=== PATIENT | female | born 1955 | race African-American/Black ===

== ENCOUNTER 2019-04-27 18:14 | Emergency (ER) | payer MEDICAID, OTHER ==
[~2019-04-27] VITALS: Ht 165.1 cm; Wt 65.8 kg
[2019-04-27 18:12] VITALS: BP 132/72
--- NOTE | 2019-04-27 18:13 | NUR ---
ED Nurse Note: pt was brought in by [facility] from [facility] c/c constipation, per EMS report pt was seen in the ED earlier and was discharged but patient couldn't afford medications and didn't sheepskin pickler her meds, pt is now having symptoms again. pt states she has 10/10 pain on abd area. pt afebrile, skin warm and dry, resp even and unlabored on RA, hypoactive BS, -n/v/d, will cont monitor.
[~2019-04-27 18:14] MED LIST: ANUSOL-HC25 MG RECTAL; CITRATE OF MAG296 ML PO; COLACE100 MG ORAL; FLEET ENEMA133 ML RECTAL; GLIPIZIDE5 MG ORAL; IBUPROFEN600 MG ORAL; VALIUM2 MG ORAL
--- NOTE | 2019-04-27 18:15 | NUR ---
benjamín [phone]
--- NOTE | 2019-04-27 18:25 | NUR ---
Scarlet Silverman- sister called , left her phone number [phone] to be called if needed.
[2019-04-27] MEDS ORDERED: Lactulose 20gm/30ml UDC ORAL ONE (18:30)
--- NOTE | 2019-04-27 19:02 | NUR ---
ED Nurse Note: Received report from CRISTINE Navarro.
--- NOTE | 2019-04-27 19:08 | Emergency Room Report ---
History of Present Illness General Chief Complaint: Constipation Source: Medical Record Present Illness HPI 63-year-old female presents to the emergency department brought by ambulance for persistent symptoms of constipation with continued 10/10 in severity abdominal and rectal pain. Patient was discharged here from the emergency department earlier with prescriptions however she states that she was not able to fill them as she did not have enough money to purchase the prescriptions. Patient also is requesting to be sent back to the boarding care that she was originally out. Patient denies new symptoms or changes to her previously evaluated symptoms. Patient is just reporting persistence and inability to fill prescriptions. She denies fevers or chills she denies vomiting she reports abdominal fullness and difficulty with having bowel movement. Denies chest pain, shortness of breath, palpitations, dizziness or headache. She denies blood in the stool or black tarry stools. Pt. with hx of constipation and hemorrhoids. Allergies: Coded Allergies: ERYTHROMYCIN BASE (Verified Allergy, Unknown, 04/27/19) HALOPERIDOL (Unverified Allergy, Unknown, 04/27/19) PENICILLINS (Verified Allergy, Unknown, 04/27/19) Patient History Past Medical History: see triage record Past Surgical History: none Pertinent Family History: none Now: No Reviewed Nursing Documentation: PMH: Agreed; PSxH: Agreed Nursing Documentation-PMH Past Medical History: No History, Except For Hx Diabetes: Yes Review of Systems All Other Systems: negative except mentioned in HPI Physical Exam Vital Signs Date Time Temp Pulse Resp B/P (MAP) Pulse Ox O2 Delivery O2 Flow Rate FiO2 04/27/19 18:10 99.0 92 16 132/72 (92) 99 Room Air Medical Decision Making PA Attestation Dr. Batista Is my supervising Physician whom patient management has been discussed with. Diagnostic Impression: Primary Impression: Constipation Qualified Codes: K59.00 - Constipation, unspecified ER Course 63-year-old female presents to the emergency department brought by ambulance for persistent symptoms of constipation with continued 10/10 in severity abdominal and rectal pain. Patient was discharged here from the emergency department earlier with prescriptions however she states that she was not able to fill them as she did not have enough money to purchase the prescriptions. Patient also is requesting to be sent back to the [facility] care that she was originally out. Patient denies new symptoms or changes to her previously evaluated symptoms. Patient is just reporting persistence and inability to fill prescriptions. She denies fevers or chills she denies vomiting she reports abdominal fullness and difficulty with having bowel movement. Denies chest pain, shortness of breath, palpitations, dizziness or headache. She denies blood in the stool or black tarry stools. Pt. with hx of constipation and hemorrhoids. Ddx considered but are not limited to constipation, appendicitis, SBO, ectopic , PID, tubo-ovarian abscess. Vital signs: are WNL, pt. is afebrile * reviewed pt. chart and imaging from visit earlier today. Pt. is positive fecal impaction based on CT imaging. H&PE are most consistent with constipation. Bowl sounds are normo active. ORDERS: none required at this time. assistant foreman will contact board and care facility and arrange transport. ED INTERVENTIONS: - Lactulose PO -- Fleet Enema: pt. given fleet enema to use at home since she was unable to fill her rx for one. --D/w pt. will also give her good Rx Discount card. DISCHARGE: At this time pt. is stable for d/c to home. Will provide printed patient care instructions, and any necessary prescriptions. Care plan and follow up instructions have been discussed with the patient prior to discharge. Last Vital Signs Date Time Temp Pulse Resp B/P (MAP) Pulse Ox O2 Delivery O2 Flow Rate FiO2 04/27/19 18:12 99.0 62 16 132/72 99 Room Air Disposition: HOME, SELF-CARE Condition: Stable Referrals: NON PHYSICIAN (PCP) Patient Instructions: Constipation, Adult, Fecal Impaction Additional Instructions: Take medications as directed. Follow up with a Primary Care Provider in 3-5 days, even if your symptoms have resolved. Return sooner to ED if new symptoms occur, or current symptoms become worse. - Please note that this Emergency Department Report was dictated using [email or web address] lead technology software, occasionally this can lead to erroneous entry secondary to interpretation by the dictation equipment. Helena Hester Apr 27, 2019 19:08
[2019-04-27] MEDS ORDERED: Fleet's Enema 133ml RECTAL ONE (19:15)
[2019-04-27 20:28] VITALS: BP 103/59
--- NOTE | 2019-04-27 20:28 | NUR ---
ER DISCHARGE NOTE: Patient is cleared to be discharged per ERMD, pt is aox4, on room air, with stable vital signs. pt was given dc and prescription instructions, pt was able to verbalize understanding, pt id band removed without complications. pt took all belongings. Pt was picked up by [facility] and left via gurney in stable condition.
== END 2019-04-27 20:28 | disposition home or self-care (01) ==
LOC: EDBD 18:14 → EMR 18:47
DX: K59.00 Constipation, unspecified (principal); Z88.0 Allergy status to penicillin; E11.9 Type 2 diabetes mellitus without complications
CPT/HCPCS: 99283